=== PATIENT | male | born 1995 ===

== ENCOUNTER 2018-09-25 09:25 | Day surgery (SDC) | payer OTHER ==
--- NOTE | 2018-09-10 10:32 | HP ---
HISTORY AND PHYSICAL: DATE OF ADMISSION/SURGERY: 09/25/18 [facility] DATE OF OFFICE VISIT: 08/30/18 SURGEON: Dr. Yris Tolentino.* (DICTATED BY NUNO WHITLEY) PROCEDURE: Right wrist ganglion excision. HISTORY OF PRESENT ILLNESS: Sandor Muniz is a 23-year-old male who has a ganglion cyst on the dorsal aspect of his right wrist. It has been present for several years. It is now bothering him enough that he would like to have it removed. It hurts when he bends his wrist or tries to bear weight in extension such as doing a push-up. When he is not bending his wrist, he does not have any pain. He rates his pain as 3/10. He is interested in having surgery to remove the cyst. He does not have any numbness or tingling. There is no injury that he recalls. He does not have the same problem on the left wrist. He has no past medical history. PAST SURGICAL HISTORY: He had a jaw reconstruction in 2013, wisdom teeth in 2011. MEDICATIONS: Zyrtec 10 mg 1 p.o. daily. ALLERGIES: No known drug allergy. FAMILY HISTORY: Negative for CAD, hypertension, diabetes, or cancer. 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 He lives with a roommate. He has about 3 alcoholic drinks per week. He denies any tobacco or recreational drug use. He drinks about 1 cup of coffee a day. REVIEW OF SYSTEMS: Negative for general, cephalic, CV, respiratory, GI, , or other musculoskeletal, integumentary, endocrine, neurologic, hematologic symptoms. Infectious Disease: Negative for MRSA, hep C, HIV. PHYSICAL EXAMINATION GENERAL: Well-developed, well-nourished 23-year-old male, in no acute distress. VITAL SIGNS: Height 69 inches, weight 153 pounds, BP 118/76, respirations 14, temperature is 97.3, pain level 0, BMI 22.6. HEENT: Normocephalic, atraumatic, PERRLA, EOMI. PULMONARY: Lungs are clear to auscultation bilaterally. No wheezes, rales, or rhonchi. NECK: Supple. No palpable lymph nodes. Throat is clear. CARDIO: RRR. S1, S2 heard. No murmurs, rubs, or gallops. No edema. ABDOMEN: Positive bowel sounds. Soft, nontender. NEUROLOGIC: A and O x3. Cranial nerves II through XII intact. Sensation is intact to light touch. MUSCULOSKELETAL: Bilateral upper extremities: On exam, his right wrist has a cystic mass on the dorsal aspect of the radiocarpal joint; it is not present on the left. It is more apparent with wrist flexion. He can fully flex and extend his wrist, but he has pain with full extension of the wrist. IMPRESSION: Right dorsal wrist ganglion. PLAN: The patient is scheduled to undergo right wrist ganglion excision on with Dr. Tolentino. The procedure as well risk and benefits were discussed with the patient and he agrees to proceed. He will return to the office 10 days postop for followup and suture removal. Prescription for Ultracet was e- prescribed to the patient's pharmacy for postoperative pain management. NUNO WHITLEY [id number]/[facility] #: [id number] GAIL
[~2018-09-25 09:25] MED LIST: Acetaminophen TAB* 325 MG PO PRN; Buffered Lidocaine 1% SYRIN* 1 ML/SYRINGE INTRADERM ONE; Dexamethasone IV* 4 MG/ML 1 ML (4 MG) IV SLOW PU ONE; Famotidine IV* 10 MG/ML 2 ML (20 mg) IV ONE; HYDROcodone/ACETAMIN 5-325 MG* 1 TAB PO PRN; Ketorolac INJ* 30 MG/ML 1 ML VIAL IV PRN; Lactated Ringers 1000 ML Bag* 1,000 ML IV SCH; Naloxone* 0.4 MG/ML 1 ML VIAL IV PRN; Ondansetron INJ* 2 MG/ML VIAL IV PRN; fentaNYL* 50 MCG/ML 2 ML VIAL (100 MCG VIAL) IV PRN; oxyCODONE/Acetamin 5/325 MG* TAB PO PRN
[2018-09-25] MEDS ORDERED: Famotidine IV* 10 MG/ML 2 ML (20 mg) ONE (09:35)
[2018-09-25] MEDS ORDERED: Dexamethasone IV* 4 MG/ML 1 ML (4 MG) ONE (09:35)
[2018-09-25] MEDS ORDERED: Lidocaine 2% PF * 5 ML VIAL ONE (10:33)
[2018-09-25] MEDS ORDERED: Propofol* 10 MG/ML 20 ML BTL ONE (10:33)
[2018-09-25] MEDS ORDERED: fentaNYL* 50 MCG/ML 2 ML VIAL (100 MCG VIAL) ONE (10:33)
[2018-09-25] MEDS ORDERED: Midazolam* 1 MG/ML 2 ML VIAL (2 MG) ONE (10:33)
[2018-09-25] MEDS ORDERED: Lidocaine 1% INJ* 10 MG/ML 30 ML SDV ONE (10:58)
[2018-09-25 12:07] VITALS: BP 113/67
--- NOTE | 2018-09-25 15:00 | OP ---
CC: Dr. Tolentino OPERATIVE REPORT: DATE OF OPERATION: 09/25/18 DATE OF : 89 SURGEON: Yris Tolentino MD. RECORDER HELPER SEISMOGRAPH: NUNO Chang. ANESTHESIA: Local MAC. PRE-OP DIAGNOSIS: Right dorsal wrist ganglion. POST-OP DIAGNOSIS: Right dorsal wrist ganglion. OPERATIVE PROCEDURE: Removal of right dorsal wrist ganglion. ESTIMATED BLOOD LOSS: Zero. TOURNIQUET TIME: Approximately 15 minutes. INDICATION FOR PROCEDURE: Sandor is a 23-year-old male who has painful mass on the dorsal aspect of his right radiocarpal joint, he presents for removal. DESCRIPTION OF PROCEDURE: The patient was brought to the operating room. He was given a sedation an esthetic and a local infiltration of 10 cc of 1% plain lidocaine overlying the wrist mass. Skin of h is right hand and forearm was prepped and draped in the usual sterile fashion. The hand and forearm were exsanguinated and the tourniquet elevated to 250 mmHg. A transverse incision was made centered over the mass. We dissected through the subcutaneous tissue down to the extensor tendons and extenso r retinaculum. The tendons were retracted in the ganglion cyst, which was broad-based and emanating from the dorsal aspect of the wrist joint capsule was removed with a portion of the joint capsule ove rlying the scapholunate ligament. There was evidence of attachment of the stock to the ligament. Th e dorsal aspect of scapholunate ligament and the edges of the joint capsule were cauterized with the Bovie. The wound was irrigated and the skin edges were reapproximated with 4-0 nylon suture. The wo und was dressed with Xeroform, 4x4, Webril, and an Clive wrap. The patient tolerated the procedure wel l and was brought to the recovery room in good conditions. [id number]/[facility] #: [id number]
== END 2018-09-25 12:00 | disposition home or self-care (01) ==
LOC: OREAST 09:25
PROVIDERS: ATTEND Orthopaedic Surgery
DX: M67.431 Ganglion, right wrist (principal)
CPT/HCPCS: 88304; J1100; J2250; J2704; J3010